=== PATIENT | female | born 1945 | race Caucasian/White ===

== ENCOUNTER 2017-11-14 16:05 | Emergency (ER) | payer MEDICARE, OTHER ==
[~2017-11-14] VITALS: Ht 172.7 cm; Wt 81.6 kg
[2017-11-14] MEDS ORDERED: LANTUS SOL100 UNIT/1 SUBQ (16:13)
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
[2017-11-14 18:07] VITALS: BP 165/78
--- NOTE | 2017-11-15 08:58 | Diagnostic Imaging Report ---
Indication: Pain, status post fall Technique: spiral acquisitions obtained through the brain. Angled axial and coronal 5 x 5 mm slices were reconstructed. No IV contrast utilized. Radiation dose was minimized using automated exposure control Total dose length product 1553.27 mGycm. CTDIvol(s) 70.38,8.71 mGy Comparison: 12/23/2006 FINDINGS: No acute hemorrhage or edema. No mass effect or midline shift. There is age-related enlargement of the ventricles and extra axial CSF spaces. There is periventricular deep white matter ischemic change. Normal naranjo-white differentiation. Visualized orbits are unremarkable. Visualized sinuses are unremarkable. Intact calvarium. No significant interim change IMPRESSION: Chronic and age-related changes. Negative for acute intracranial bleed or mass effect This agrees with the preliminary interpretation provided overnight by [facility] teleradiology service. The CT scanner at [facility] is accredited by the [employer] and the scans are performed using protocols designed to limit radiation exposure to as low as reasonably achievable to attain images of sufficient resolution adequate for diagnostic evaluation
--- NOTE | 2017-11-15 09:03 | Diagnostic Imaging Report ---
Indication: Pain, status post fall Technique: Spiral acquisitions obtained through the cervical spine. No IV contrast utilized. Multiplanar reconstructions were generated. Total dose length product 1553.27 mGycm. CTDIvol(s) 70.38,8.71 mGy. Dose reduction achieved using automated exposure control. Comparison: none Findings: Minimal posterior offset of C5 on C6, otherwise normal bony alignment. No prevertebral soft tissue swelling. No acute fractures. No dislocations. There is degenerative disc narrowing at C5-6. The remainder of the disc spaces are preserved. There is multilevel degenerative facet arthrosis. C3-4, there is mild to moderate degenerative neural foraminal narrowing on the left. No disc bulge or protrusion or spinal stenosis. At C5-6, there is mild degenerative disc narrowing. There is minimal right, moderate left neural foraminal stenosis. Posterior osteophytes may impinge slightly on the left lateral recess. At the remaining disc levels, no significant disc bulge or protrusion, spinal stenosis, or neural foraminal narrowing. Included extraspinal soft tissues are unremarkable. Impression: No acute bony trauma Mild degenerative changes, as detailed on a level by level basis above This agrees with the preliminary interpretation provided overnight by [facility] service. The CT scanner at [facility] is accredited by the [employer] and the scans are performed using protocols designed to limit radiation exposure to as low as reasonably achievable to attain images of sufficient resolution adequate for diagnostic evaluation.
--- NOTE | 2017-11-15 11:34 | Diagnostic Imaging Report ---
Indication: Pain, status post fall Technique: 3 views of the left ribs Comparison: none Findings: There is an old healed fracture deformity of the left fifth rib. No definite acute fractures. No gross pneumothorax. Impression: No acute bony trauma This agrees with the preliminary interpretation provided by the emergency room physician
== END 2017-11-14 18:08 | disposition home or self-care (01) ==
LOC: EDBD 16:05 → EMR 16:31
DX: S20.211A Contusion of right front wall of thorax, initial encounter (principal); V43.52XA Car driver injured in collision with other type car in traffic accident, initial encounter; Y92.410 Unspecified street and highway as the place of occurrence of the external cause; M54.2 Cervicalgia; E11.9 Type 2 diabetes mellitus without complications; Z88.2 Allergy status to sulfonamides; R07.9 Chest pain, unspecified; R51 Headache
CPT/HCPCS: 70450; 72125; 99284